=== PATIENT | female | born 2000 | race African-American/Black ===

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

== ENCOUNTER 2018-01-20 17:19 | Outpatient (CLI) | payer OTHER | END 2018-01-20 17:20 | LOC: LABRHC 17:19 | PROVIDERS: ATTEND Physician Assistant | DX: R35.0 Frequency of micturition (principal) | CPT/HCPCS: 87086 ==

== ENCOUNTER 2019-01-18 10:30 | Outpatient (CLI) | payer BC | END 2019-01-18 10:33 | LOC: LABRHC 10:30 | PROVIDERS: ATTEND Family Medicine | DX: R30.0 Dysuria (principal) | CPT/HCPCS: 87086 ==